=== PATIENT | male | born 1945 | race Caucasian/White ===

== ENCOUNTER → 2020-07-08 | Outpatient (CLI) | payer OTHER ==
[~2020-07-08] VITALS: Ht 157.5 cm; Wt 82.7 kg
[~2020-07-08] MED LIST: ASA81BEC PO; CILOSTAZOL 100100 M1 PO; DICLOFENAC SODI50 MG PO; FISH OIL 1,0001 EAC9 PO; HYDROCODONE-APA1 TA1 PO; LISINOPRIL20 MG PO; LOPRESSOR50 PO; PLAVIX 75 MG TA75 M1 PO; ROSUVASTATIN CAL5 MG PO; TRIGLIDE160 MG PO
[2020-07-08 11:29] VITALS: BP 141/75
[2020-07-08 12:09] LABS: ABSOLUTE NEUTROPHILS 4.2 thou/uL (1.4-8.2); BASOPHILS 0.7 % (0.0-2.0); EOSINOPHILS 7.2 % (0.0-3.0); HEMATOCRIT 45.4 % (42.0-52.0); HEMOGLOBIN 15.3 gm/dL (14.0-18.0); LYMPHOCYTES 21.7 % (24.0-44.0); MCH 31.9 pg (26.0-34.0); MCHC 33.6 g/dL (28.0-37.0); MCV 94.8 fL (80.0-100.0); MONOCYTES 10.8 % (1.0-8.0); PLATELET COUNT 188 thou/uL (150-400); POLYS 59.6 % (36.0-66.0); RBC 4.79 mil/uL (4.50-6.00); RDW 13.2 % (10.5-14.5); WBC 7.1 thou/uL (4.0-11.0)
[2020-07-08 12:22] LABS: APTT 27.8 Seconds (24.5-32.8); CALCIUM 9.3 mg/dL (8.5-10.1); CREATININE 1.1 mg/dL (0.7-1.3); INR 0.98; POTASSIUM 4.2 mmol/L (3.5-5.1); PROTIME 10.7 Seconds (9.3-11.4); TOTAL BILIRUBIN 0.5 mg/dL (0.2-1.0); TOTAL PROTEIN 7.6 g/dL (6.4-8.2)
[2020-07-08 15:00] LABS: URINE BILIRUBIN NEGATIVE (Negative); URINE BLOOD NEGATIVE (Negative); URINE CLARITY CLEAR; URINE COLOR YELLOW; URINE GLUCOSE-RANDOM* NEGATIVE (Negative); URINE KETONES NEGATIVE (Negative); URINE LEUKOCYTES-REFLEX NEGATIVE (Negative); URINE NITRITE-REFLEX NEGATIVE (Negative); URINE PROTEIN (DIPSTICK) NEGATIVE (Negative); URINE SPECIFIC GRAVITY <= 1.005 (1.005-1.035); URINE UROBILINOGEN 0.2 E.U./dl (0.2-1.0)
--- NOTE | 2020-07-08 15:31 | EKG ---
[address] [address] [place] [address] ELECTROCARDIOGRAM REPORT Name: RACHEL FRANCO Room #: [facility] [id number] Admission: 07/08/20 Attend Phys: Morales Walton MD Discharge: Date of : 45 Report #: [id number] [facility] Test Date: 2020-07-08 Test Time: 12:05:57 Pat Name: RACHEL FRANCO Department: Room: Gender: M [employer]: [place] : 1945 Requested By: Ced Conklin Order Number: [id number] MD: Mayank Medina Measurements Intervals [place] Rate: 75 P: 17 MA: 159 QRS: 5 QRSD: 90 T: 57 QT: 411 QTc: 460 Interpretive Statements Sinus rhythm RSR' in V1 or V2, probably normal variant J Point elevation, precordial leads No previous ECG available for comparison Electronically Signed On 07-08-2020 15:31:29 CDT by Mayank Medina [email or web address] <ELECTRONICALLY SIGNED> By: Mayank Medina MD, [facility] 07/08/20 1531 1205 1205 Maaynk Medina MD, FACC /EPI
== END | disposition home or self-care (01) ==
LOC: CATH 07:23
PROVIDERS: Surgery Vascular Surgery; ATTEND Nuclear Medicine Nuclear Cardiology
DX: I65.23 Occlusion and stenosis of bilateral carotid arteries (principal); I70.1 Atherosclerosis of renal artery; I73.9 Peripheral vascular disease, unspecified; I10 Essential (primary) hypertension; F17.210 Nicotine dependence, cigarettes, uncomplicated; Z98.890 Other specified postprocedural states; Z79.899 Other long term (current) drug therapy; Z96.652 Presence of left artificial knee joint; Z95.0 Presence of cardiac pacemaker

== ENCOUNTER → 2020-10-07 | Outpatient (CLI) | payer OTHER ==
[~2020-10-07] MED LIST changes: +ASPIRIN325 PO; +FENOFIBRATE160 MG PO; +MAGNESIUM250 M1 PO; +METOPROLOL SUC100 MG PO; +NORVASC5 MG PO; +PLAVIX 75 MG TA75 MG PO; +PRINIVIL20 MG PO
== END ==
LOC: SJCVCIMAG 09-02 14:05
PROVIDERS: ATTEND Nuclear Medicine Nuclear Cardiology
DX: I65.23 Occlusion and stenosis of bilateral carotid arteries (principal); I77.9 Disorder of arteries and arterioles, unspecified; I73.9 Peripheral vascular disease, unspecified; I25.10 Atherosclerotic heart disease of native coronary artery without angina pectoris; E78.00 Pure hypercholesterolemia, unspecified; I10 Essential (primary) hypertension; E78.5 Hyperlipidemia, unspecified; F17.200 Nicotine dependence, unspecified, uncomplicated; Z98.890 Other specified postprocedural states; Z88.8 Allergy status to other drugs, medicaments and biological substances; Z95.828 Presence of other vascular implants and grafts; Z88.2 Allergy status to sulfonamides; Z88.0 Allergy status to penicillin; Z79.82 Long term (current) use of aspirin; Z79.899 Other long term (current) drug therapy

== ENCOUNTER → 2021-05-02 | Outpatient (CLI) | payer OTHER | LOC: SJCVCIMAG 13:29 | PROVIDERS: ATTEND Nuclear Medicine Nuclear Cardiology | DX: I65.23 Occlusion and stenosis of bilateral carotid arteries (principal); I77.9 Disorder of arteries and arterioles, unspecified; I73.9 Peripheral vascular disease, unspecified; I25.10 Atherosclerotic heart disease of native coronary artery without angina pectoris; I10 Essential (primary) hypertension; I35.0 Nonrheumatic aortic (valve) stenosis; E78.00 Pure hypercholesterolemia, unspecified; E78.5 Hyperlipidemia, unspecified; Z72.0 Tobacco use; Z98.890 Other specified postprocedural states; Z79.82 Long term (current) use of aspirin; Z79.899 Other long term (current) drug therapy ==